=== PATIENT | female | born 1965 | race Caucasian/White ===

== ENCOUNTER 2023-06-22 16:00 | Emergency (ER) | payer OTHER, SELFPAY ==
--- NOTE | 2023-06-22 16:02 | ED.URI ---
HPI - URI/Sore Throat General Chief Complaint: Upper Respiratory Infection Stated Complaint: Chest Congestion Time Seen by Provider: 06/22/23 16:13 Source: patient and RN notes reviewed Mode of arrival: ambulatory Limitations: no limitations History of Present Illness HPI Narrative: 57-year-old female presents with concern for persistent cough for about 4 weeks. She reports persistent cough body aches. She reports some nasal congestion. She denies fever chills, sweats. Reports coughing fits. MD elicited complaint: cough Related Data Home Medications Medication Instructions Recorded Confirmed calcium carbonate 600 mg-vitamin 1 tablet PO DAILY 06/22/23 06/22/23 D3 20 mcg (800 unit) tablet (Caltrate with Vitamin D3) levothyroxine 100 mcg tablet 100 mcg PO DAILY 06/22/23 06/22/23 (Synthroid) venlafaxine 75 mg tablet 75 mg PO DAILY 06/22/23 06/22/23 Allergies Allergy/AdvReac Type Severity Reaction Status Date / Time Sulfa (Sulfonamide Allergy Mild Rash Verified 06/22/23 16:09 Antibiotics) Review of Systems Review of Systems: CONSTITUTIONAL: Denies malaise, chills, sweats, or fever. EYES: Denies visual changes, redness, or discharge. ENT: Reports rhinorrhea, congestion. Denies sinus pain, otalgia and sore throat. CARDIOVASCULAR: Denies chest pain, palpitations, or edema. RESPIRATORY: Reports persistent cough. Denies dyspnea. GASTROINTESTINAL: Denies abdominal pain, nausea, vomiting, diarrhea SKIN: Denies rash or itching. MUSCULOSKELETAL: Denies myalgia. NEUROLOGIC: Denies headache. All systems reviewed & are unremarkable except as noted in HPI and below PMFSH Comments At time of signature, agree with nursing past medical, surgical, social and family history. There is no relevant family history pertinent to the presenting complaint Exam Narrative: GENERAL: Well-appearing, well-nourished, and in no acute distress. HEAD: Normocephalic EYES: PERRLA, conjunctivae clear ENT: Nares clear. Mucous membranes moist. TM pearly valdes with dull light reflex bilaterally; no tragal tenderness. Oropharynx not erythematous without lesions. Tonsils not enlarged and without exudate, no drooling, no hoarseness, no trismus, uvula midline. NECK: Supple. No lymphadenopathy CHEST: Clear to auscultation, breath sounds equal. No wheezing, rhonchi, rales, or stridor. No respiratory distress, speaks in full sentences. Cough noted HEART: Regular rate and rhythm. No murmur heard. SKIN: Warm, dry, no rash. NEURO: Alert and oriented x3. PSYCH: Normal mood and affect Course Course Emergency Course: Patient is aware of diagnosis, understands and agrees to treatment plan. Anticipatory guidance given. Patient agrees to follow-up as directed and is aware of reasons to seek care at the emergency department. Portions of this record may have been created with voice recognition software Level of Care: Express Care Visit Vital Signs Vital signs: Reviewed. MDM - URI/Sore Throat MDM Narrative Medical decision making narrative: Differential diagnosis considered: [place] virus, strep pharyngitis, allergic rhinitis, upper respiratory tract infection, sinusitis, rhinosinusitis, nasopharyngitis. viral pharyngitis, otitis media, otitis externa, pneumonia, bronchitis, viral cough syndrome, viral syndrome, and influenza. Exam findings show no acute concerns or changes; patient is non-toxic appearing and is in no distress. Patient is appropriate for outpatient treatment and follow-up. Lab Data Attestation: I reviewed the patient's lab results. Critical Care Time Critical Care Time Critical Care Time: No Discharge Plan Discharge Clinical Impression: Bronchitis Patient Disposition: Home, Self-Care Condition: Stable Instructions: Antibiotic Form, Acute Bronchitis (ED) Additional Instructions: Take medications as prescribed Recommend antihistamine such as Benadryl at night time and Zyrtec or Rola during the day Use
[2023-06-22 16:12] VITALS: BP 136/83; PULSE 106; RESP 16; TEMP 36.1; O2SAT 98
== END 2023-06-22 16:24 | disposition home or self-care (01) ==
PROVIDERS: Emergency Provider Nurse Practitioner; PCP Internal Medicine Geriatric Medicine
DX: J40 Bronchitis, not specified as acute or chronic (principal)
CPT/HCPCS: 99203; G0463

== ENCOUNTER 2023-08-29 08:01 | Emergency (ER) | payer OTHER, SELFPAY ==
--- NOTE | 2023-08-29 08:13 | ED.URI ---
HPI - URI/Sore Throat General Chief Complaint: Upper Respiratory Infection Stated Complaint: COUGH/CONGESTION Source: patient, RN notes reviewed and old records reviewed Mode of arrival: ambulatory Limitations: no limitations History of Present Illness HPI Narrative: 58 year old female who presents to [facility] care with complaints of cough, sinus congestion and drainage, For 3 weeks duration. Patient reports she has been taking Mucinex has been taking coughing cold [id number]. Patient states her cough is worse at night has noticed some wheezing. patient denies any fevers denies any body aches denies any chills or sweats. patient reports her cough is productive at times with a clear expectoration.Patient reports she was treated in May for similar symptoms with prednisone, antibiotic, inhaler which did resolve her symptoms. 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 MD elicited complaint: cough, rhinorrhea and nasal congestion Onset (ago): week(s) (3) Description of mucous: clear Able to tolerate fluids by mouth: Yes Exacerbating factors: supine positioning Treatments prior to arrival: other ( Mucinex, Cough and cold OTC) Related Data Home Medications Medication Instructions Recorded Confirmed calcium carbonate 600 mg-vitamin 1 tablet PO DAILY 06/22/23 08/29/23 D3 20 mcg (800 unit) tablet (Caltrate with Vitamin D3) levothyroxine 100 mcg tablet 100 mcg PO DAILY 06/22/23 08/29/23 (Synthroid) venlafaxine 75 mg tablet 75 mg PO DAILY 06/22/23 08/29/23 Allergies Allergy/AdvReac Type Severity Reaction Status Date / Time Sulfa (Sulfonamide Allergy Mild Rash Verified 08/29/23 08:16 Antibiotics) Review of Systems Review of Systems: CONSTITUTIONAL: Denies malaise, chills, sweats, or fever. EYES: Denies visual changes, redness, or discharge. ENT: Reports rhinorrhea, congestion, sinus pain,no otalgia and no sore throat. CARDIOVASCULAR: Denies chest pain, palpitations, or edema. RESPIRATORY: Reports cough.? Denies dyspnea. GASTROINTESTINAL: Denies abdominal pain, nausea, vomiting, diarrhea SKIN: Denies rash or itching. MUSCULOSKELETAL: Denies myalgia. NEUROLOGIC: Denies headache. All systems reviewed & are unremarkable except as noted in HPI and below PMFSH Past Medical History Medical History (Updated 08/29/23 @ 09:46 by Chanda Liriano NP) Breast cancer right Hypothyroid Surgical History Surgical History (Updated 08/29/23 @ 09:48 by Chanda Liriano NP) H/O bilateral mastectomy H/O breast reconstruction History of removal of both ovaries History of removal of Port-a-Cath had port a cath for chemotherapy History of repair of anterior cruciate ligament of left knee Social History Social History (Updated 08/29/23 @ 09:46 by Chanda Liriano NP) Smoking status: Never smoker Alcohol intake: current Alcohol use details: rare Substance use type: does not use Living arrangements: with family 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 There is no relevant family history pertinent to the presenting complaint Exam Narrative: GENERAL: Well-appearing, well-nourished, and in no acute distress. HEAD: Normocephalic EYES: PERRLA, conjunctivae clear ENT: Nares clear, turbinates edematous and erythematous, clear discharge. Mucous membranes moist. TM pearly valdes with dull light reflex bilaterally; no tragal tenderness. Oropharynx erythematous without lesions. Tonsils not enlarged and without exudate, no drooling, no hoarseness, no trismus, uvula midline.post nasal drainage NECK: Supple. No lymphadenopathy CHEST:Scattered wheezing noted, breath sounds equal.Positive wheezing, no rhonchi, rales, or stridor. No respiratory distress, speaks in full sentences.cough at times productiv
[2023-08-29 08:14] VITALS: BP 147/89; PULSE 88; RESP 16; TEMP 36.8; O2SAT 100
== END 2023-08-29 08:38 | disposition home or self-care (01) ==
PROVIDERS: Emergency Provider Registered Nurse; PCP Internal Medicine Geriatric Medicine
DX: J40 Bronchitis, not specified as acute or chronic (principal); E03.9 Hypothyroidism, unspecified; Z85.3 Personal history of malignant neoplasm of breast; Z90.13 Acquired absence of bilateral breasts and nipples
CPT/HCPCS: 99213; G0463

== ENCOUNTER 2024-12-19 08:09 | Emergency (ER) | payer OTHER, SELFPAY ==
[2024-12-19 08:21] VITALS: BP 129/66; PULSE 90; RESP 16; TEMP 36.3; O2SAT 98
--- NOTE | 2024-12-19 08:32 | ED_ITS ---
HPI - URI/Sore Throat General Chief Complaint: Upper Respiratory Infection Stated Complaint: CHEST CONGESTION Time Seen by Provider: 12/19/24 08:32 Source: patient Mode of arrival: ambulatory Limitations: no limitations History of Present Illness HPI Narrative: 59-year-old female presents with complaint ?cold symptoms? for the past 2-3 weeks. States ?thought it was just a common cold ?. Has been coughing for ab out 5 days. Thinks that infection went down into chest. 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 No chest pain or shortness of breath. All systems reviewed and negative except as noted above. Related Data Home Medications ?Medication ?Instructions ?Recorded ?Confirmed ?Last Taken ?Type calcium 600 mg (as 1 tablet PO DAILY 06/22/23 12/19/24 Unknown History carbonate)-vitamin D3 20 mcg (800 unit) tablet (Caltrate with Vitamin D3) levothyroxine 100 mcg tablet 100 mcg PO DAILY 06/22/23 12/19/24 Unknown History (Synthroid) venlafaxine 75 mg tablet 75 mg PO DAILY 06/22/23 12/19/24 Unknown History semaglutide 0.25 mg or 0.5 mg (2 2 mg subcut WEEKLY 12/19/24 12/19/24 Unknown History mg/3 mL) subcutaneous pen injector (Ozempic) Allergies Allergy/AdvReac Type Severity Reaction Status Date / Time Sulfa (Sulfonamide Allergy Mild Rash Verified 12/19/24 08:18 Antibiotics) Review of Systems Review of Systems: CONSTITUTIONAL: Denies fever, chills, or sweats. EYES: Denies visual changes, redness, or discharge. ENT: Reports rhinorrhea, congestion. Denies sore throat, or otalgia. CARDIOVASCULAR: Denies chest pain, palpitations, or edema. RESPIRATORY: Reports cough. Denies dyspnea. GASTROINTESTINAL: Denies abdominal pain, nausea, vomiting, or diarrhea. GENITOURINARY: Denies dysuria or hematuria. SKIN: Denies rash or itching. MUSCULOSKELETAL: Denies back pain, joint pain, or myalgia. NEUROLOGIC: Denies headache, numbness, or weakness. PSYCHIATRIC: Denies anxiety or depression. All other systems reviewed are negative, except as documented in HPI. [facility] Past Medical History Medical History (Updated 12/19/24 @ 08:37 by Helen Aguirre NP) Hypothyroid Breast cancer right Surgical History Surgical History (Updated 08/29/23 @ 09:48 by Chanda Liriano NP) History of removal of Port-a-Cath had port a cath for chemotherapy History of removal of both ovaries History of repair of anterior cruciate ligament of left knee H/O breast reconstruction H/O bilateral mastectomy Social History Social History (Updated 08/29/23 @ 09:46 by Chanda Liriano NP) Smoking status: Never smoker Alcohol intake: current Alcohol use details: rare Substance use type: does not use Living arrangements: with family 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 There is no relevant family history pertinent to the presenting complaint. Exam Narrative: GENERAL: This is a well-nourished, well-developed patient, in no apparent distress. HEAD: normocephalic, atraumatic. EYES: PERRL. Sclera clear/white. Vision is grossly intact. EARS: External ears normal, auditory canals clear and without drainage, TMs normal without perforation. Hearing grossly intact. NOSE: External nose normal with congestion, clear nasal drainage THROAT: Mucous membranes moist, posterior pharynx clear. NECK: Neck supple, non-tender without lymphadenopathy, masses or thyromegaly. CARDIOVASCULAR: Regular rate and rhythm without murmurs, gallops, or rubs. RESPIRATORY: Clear to auscultation. Breath sounds equal bilaterally. No wheezes, rales, or rhonchi. SKIN: warm, Dry, intact with no suspicious lesions or rash, good texture and turgor. NEURO: awake, alert, and oriented to person, place and time. There were no obvious focal neurologic abnormalities. EXTREMITIES: No joint tenderness, effusion, or edema noted. Course Course Level of Care: Express Care Visit Vital Signs Vital signs: Vital Signs Temperature 36.3 C L 12/19/24 08:21 Pulse Rate 90 12/19/24 08:21 Respiratory Rate 16 12/19/24 08:21 Blood Pressure 129/66 12/19/24 08:21 Pulse Oximetry 98 12/19/24 08:21 Oxygen Delivery Room Air 12/19/24 08:21 Temperature 36.3 C L 12/19/24 08:21 Pulse Rate 90 12/19/24 08:21 Respiratory Rate 16 12/19/24 08:21 Blood Pressure 129/66 12/19/24 08:21 Pulse Oximetry 98 12/19/24 08:21 Oxygen Delivery Room Air 12/19/24 08:21 Reviewed MDM - URI/Sore Throat MDM Narrative Medical decision making narrative: Will prescribe antibiotic due to duration of symptoms and exam findings. Pa tient is alert, nontoxic. Lungs clear to auscultation. Patient agrees with plan of care. Please be advised this is a medical document. It is intended for [id number] communication. It is written in medical language and may contain unfamiliar abbreviations or verbiage. Medical documents are intended to carry relevant information, facts as evident, and the clinical opinion of the practitioner at the time of the encounter. This report may have been done utilizing a voice recognition system. Attempts have been made to correct errors. However, there may be uncorrected grammatical, spelling, and recognition errors present. The file time of this note does not necessarily represent the time of service. Discharge Plan Discharge Clinical Impression: Acute bronchitis Qualifiers: Bronchitis organism: unspecified organism Qualified Code(s): J20.9 - Acute bronchitis, unspecified Patient Disposition: Home, Self-Care Condition: Stable Instructions: Antibiotic Form, Acute Bronchitis (ED) Additional Instructions: Take medications as prescribed. Take ibuprofen or Tylenol every 6-8 hours as needed for pain and fever. Drink at least 64 [address] a day. [address] cool mist humidifier in bedroom where you sleep. Follow-up with your primary care physician if symptoms are not improving. Patient Language: Citizen Of [place] Prescriptions: New benzonatate 200 mg capsule 200 mg PO TID PRN (Reason: cough) Qty: 20 0RF methylprednisolone [Medrol ([place])] 4 mg tablets,dose pack See Rx Instructions PO .COMPLEX Qty: 21 0RF Rx Instructions: orally per package directions albuterol sulfate 90 mcg/actuation HFA aerosol inhaler 2 puff inhalation Q4-6H PRN (Reason: shortness of breath or wheezing) Qty: 8.5 0RF amoxicillin-pot clavulanate 875-125 mg tablet 1 tablet PO Q12H 7 Days Qty: 14 0RF (DME) Aerochamber Plus Z Stat Spacer See Rx Instructions .Route Qty: 1 0RF Rx Instructions: As directed amoxicillin-pot clavulanate 875-125 mg tablet 1 tablet PO Q12H 7 Days Qty: 14 0RF No Action venlafaxine 75 mg tablet 75 mg PO DAILY levothyroxine [Synthroid] 100 mcg tablet 100 mcg PO DAILY calcium carbonate-vitamin D3 [Caltrate with Vitamin D3] 600 mg-20 mcg (800 unit) Tablet 1 tablet PO DAILY albuterol sulfate 90 mcg/actuation HFA aerosol inhaler 2 puff INHALATION QID PRN (Reason: shortness of breath or wheezing) Qty: 8.5 0RF Ozempic 0.25 mg or 0.5 mg (2 mg/3 mL) pen injector 2 mg SUBCUT WEEKLY Follow-up/Referrals: Dilcia,MD Macrina [Primary Care Provider] - Time of Disposition: 08:39
== END 2024-12-19 08:42 | disposition home or self-care (01) ==
PROVIDERS: Emergency Provider Nurse Practitioner Family; PCP Internal Medicine Geriatric Medicine
DX: J20.9 Acute bronchitis, unspecified (principal); E03.9 Hypothyroidism, unspecified; Z85.3 Personal history of malignant neoplasm of breast; Z90.13 Acquired absence of bilateral breasts and nipples; Z90.722 Acquired absence of ovaries, bilateral
CPT/HCPCS: 99213; G0463

== ENCOUNTER 2025-06-27 23:43 | Emergency (ER) | payer OTHER, SELFPAY ==
--- NOTE | ~2025-06-27 | XR_ITS ---
Examination: XR chest 2V Clinical History: chest pain Comparison: None Technique: PA and Lateral Findings: Cardiomediastinal silhouette normal size and configuration. Lungs clear. No acute bony abnormality. IMPRESSION: 1. No acute cardiopulmonary findings. Reviewed, dictated and finalized at location R.
--- NOTE | ~2025-06-27 | CT_ITS ---
EXAMINATION: CTA chest PE protocol DATE: 06/28/2025 07:02 INDICATION: Chest pain. TECHNIQUE: Computed tomography angiography (CTA) of the chest was performed with 100 mL Omnipaque-350 intravenous contrast timed to evaluate the pulmonary arteries. Coronal maximum intensity projection 3D-reconstructions were created by the technologist. Automated exposure control and iterative reconstruction technique were employed. The dose-length product was 621.22 mGy-cm. COMPARISON: None. FINDINGS: The lungs demonstrate mild atelectasis. No pleural effusion. The heart size is normal. No pericardial effusion. There is no pulmonary embolus. Breast implants are noted. Gallbladder wall thickening is noted. There is cortical thinning of right kidney. There is no pulmonary embolus. Aorta is normal in caliber. There is severe cervical and thoracic spondylosis. IMPRESSION: 1. No pulmonary embolus. 2. Gallbladder wall thickening suspicious for acute or chronic cholecystitis. Reviewed, dictated and finalized at location E.
[2025-06-27 23:57] VITALS: BP 151/85; PULSE 71; RESP 18; TEMP 36.4; O2SAT 100
[2025-06-28 00:05] LABS: Hematocrit 50.3 % (37.0-47.0); Hemoglobin 16.3 g/dL (12.0-15.0); Immature Granulocyte Percent A 0.1 % (0-0.5); Lymphocytes Absolute Auto 2.15 K/mm3 (0.9-3.2); Mean Corpuscular HGB Conc 32.4 g/dl (32-36); Mean Corpuscular Hemoglobin 27.1 pg (26-34); Mean Corpuscular Volume 83.6 fl (80-100); Nucleated Red Blood Cells Absolute Auto 0.000 K/mm3 (0.0-0.012); Nucleated Red Blood Cells Perc 0.0 % (0.0-0.2); Platelet Count Result 222 k/mm3 (150-375); Red Blood Count 6.02 M/mm3 (4.2-5.4); White Blood Count 8.4 K/mm3 (4.5-10.0)
[2025-06-28 00:32] LABS: INR 1.0; Partial Thromboplastin Time 28.5 Seconds (22.3-36.8); Prothrombin Time 12.8 Seconds (11.1-14.7)
[2025-06-28 00:45] LABS: Alanine Aminotransferase 19 U/L (6-35); Albumin Level 4.3 g/dL (3.5-5.1); Alkaline Phosphatase 81 U/L (38-126); Anion Gap 8 mmol/L (4-12); Aspartate Amino Transferase 25 U/L (14-36); Bilirubin,Total 0.5 mg/dL (0.2-1.3); Blood Urea Nitrogen 15 mg/dL (7-17); Calcium 9.5 mg/dL (8.4-10.2); Carbon Dioxide 29 mmol/L (22-30); Chloride 100 mmol/L (98-107); Estimated CRCL calculation 85 ml/min; Estimated Glomerular Filt Rate > 60; Glucose 138 mg/dL (65-110); Lipase 82 U/L (23-300); Potassium 3.6 mmol/L (3.4-5.0); Sodium 137 mmol/L (137-145); Total Protein 7.9 g/dL (6.3-8.2)
[2025-06-28 00:57] LABS: Troponin I < 0.012 ng/mL (0.000-0.034)
--- NOTE | 2025-06-28 03:01 | ECG_ITS ---
Test Date: 2025-06-28 04:06:00 Measurements Intervals [place] Rate: 66 P: 13 MI: 181 QRS: -19 QRSD: 80 T: 10 QT: 384 QTc: 404 Interpretive Statements SINUS RHYTHM POSSIBLE ANTERIOR MYOCARDIAL INFARCTION , PROBABLY OLD BORDERLINE T WAVE ABNORMALITY- INFERIOR LEADS BASELINE ARTIFACT- I, II, AVR, V1 ABNORMAL ECG Compared to ECG 06/27/2025 23:49:21 NO SIGNIFICANT CHANGE Electronically Signed On 06-28-2025 08:21:14 CDT by Errol Barahona D.O.
--- NOTE | 2025-06-28 04:00 | ECG_ITS ---
Test Date: 2025-06-28 07:19:40 Measurements Intervals [place] Rate: 70 P: 12 MS: 179 QRS: -18 QRSD: 83 T: 3 QT: 409 QTc: 443 Interpretive Statements SINUS RHYTHM LOW QRS VOLTAGE IN PRECORDIAL LEADS VOLTAGE CRITERIA FOR LVH POSSIBLE ANTERIOR MYOCARDIAL INFARCTION , PROBABLY OLD BORDERLINE T WAVE ABNORMALITY- INFERIOR LEADS BASELINE ARTIFACT- I, II, AVR, V1 ABNORMAL ECG Compared to ECG 06/28/2025 04:06:00 NO SIGNIFICANT CHANGE Electronically Signed On 06-28-2025 08:26:08 CDT by Errol Barahona D.O.
--- OUTSIDE RECORDS SUMMARY | 2025-06-28 04:20 | XMS_ITS | Encounter Summary ---
Author Organization [facility] Healthcare Address [address] [place] [address] Care Team Providers Care [employer] Name Role Phone Macrina Ha MD Primary Care Provider [phone] Christofer Mcgregor MD Unavailable [phone] Usman Richardson MD Unavailable + Waqas Loving MD Unavailable Brittany Rico MD Unavailable [phone] Bruce Bermudez OD Unavailable [phone] Bruce Phillips DO Unavailable [phone] Encounter Details Date Type Department Care Team (Late st Contact Info) Description 06/15/2025 Results Follow-Up [facility] [address] [place] [address] Jayla Blood NP [address] [place] [address] Cholesterol, LDL, direct, Comprehensive metabolic panel, Albumin Creatinine Ratio, Urine, Additional followed-up results: 4 Social History Tobacco Use Types Packs/Day Years Used Date Smoking Tobacco: Never Smokeless Tobacco: Never Alcohol Use Standard Drinks/Week Comments Yes 0 (1 standard drink = 0.6 oz pur e alcohol) socially PHQ-2 Answer Date Recorded PHQ-2 Total Score (If total score is 3 or more points, staff should administer the PHQ-9) 0 06/01/2025 AUDIT-C Answer Date Recorded Q1: How often do you have a drink containing alc ohol? Monthly or less 06/01/2025 Q2: How many drinks containi ng alcohol do you have on a typical day when you are drinking? 1 or 2 06/01/2025 Q3: How often do you have si x or more drinks on one occasion? 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 Not on file Not on file documented as of this encounter Plan of Treatment Not on file documented as of this encounter Visit Diagnoses Not on filedocumented in this encounter Care Teams [employer] Relationship Specialty Start Date End Date Macrina Ha MD PCP - General 12/22/16 Christofer Mcgregor MD [address] [facility] [id number] [place] [address] Consulting Physician Gynecologic Oncology 12/16/17 Usman Richardson MD [address] GASTRO[facility]Y [place] [id number] Consulting Physician Gastroenterology 12/16/17 Waqas Loving MD [address] [place] [address] Surgeon Plastic Surgery 12/16/17 Brittany Rico MD [address] [place] [address] Surgeon Surgical Oncology 12/16/17 Bruce Bermudez OD [address] [place] [address] Optometry 12/18/17 Bruce Phillips DO [address] [place] [id number] Medical Oncologist/Hematolog ist Hematology and Oncology 04/14/22 documented as of this encounter
--- OUTSIDE RECORDS SUMMARY | 2025-06-28 04:20 | XMS_ITS | Clinical Summary ---
Author Organization [facility] Address [address] [place] [address] Care Team Providers Care Elevator Operator Name Role Phone Macrina Ha MD Primary Care Provider [phone] Christofer Mcgregor MD Unavailable Usman Richardson MD Unavailable + Gaby Loving MD Unavailable [phone] Brittany Rico MD Unavailable [phone] Bruce Bermudez OD Unavailable [phone] Bruce Phillips DO Unavailable [phone] Allergies Active Allergy Reactions Criticality Noted Date Comments Animal Dander Unknown Chocolate Rash Medium Cinnamon Unknown House Dust Sulfa (Sulfonamide Antibiotics) Rash,Itching Medium Reaction: Rash, Itching, Sulfasalazine Unknown,Rash Medium 09/13/2016 Medications blood-glucose meter misc Use daily or as directed for monitoring of diabetes. 1 each 04/26/20 22 Active blood glucose diagnostic (glucose blood) stripIndications:t ype 2 diabetes mellitus Check blood sugar daily 100 each 11 04/26/20 22 Active lancets miscIndications:ty pe 2 diabetes mellitus 1 each by other route as directed Check blood sugars daily 100 each 06/06/20 22 Active triamcinolone (KENALOG) 0.1 % ointmentIndication s:Dry skin dermatitis Apply topically 2 (two) times a day as needed for rash (Breast area rash) 80 g 1 11/13/19 25 Active vitamin B complex capsule Take 1 capsule by mouth daily Active semaglutide (OZEMPIC) 2 mg/dose (8 mg/3 mL) pen injector injectionIndicatio ns:Class 2 severe obesity with serious comorbidity and body mass index (BMI) of 36.0 to 36.9 in adult, unspecified obesity type,Type 2 diabetes mellitus with hyperlipidemia (HCC) Inject 2 mg under the skin every 7 days 9 mL 2 06/01/20 25 Active levothyroxine (SYNTHROID) 100 mcg tabletIndications: Hypothyroidism, adult Take 1 tablet (100 mcg total) by mouth daily 90 tablet 3 06/01/20 25 Active venlafaxine (EFFEXOR) 75 mg tabletIndications: Surgical menopause Take 1 tablet (75 mg total) by mouth nightly 90 tablet 3 06/01/20 25 Active calcium carbonate/vitamin D3 (CALTRATE 600 PLUS D ORAL) Take by mouth 025 Discontin ued(Thera py completed ) venlafaxine (EFFEXOR) 75 mg tabletIndications: Surgical menopause Take 1 tablet (75 mg total) by mouth nightly 90 tablet 3 05/27/20 24 025 Discontin ued(Reord er) levothyroxine (SYNTHROID) 100 mcg tabletIndications: Hypothyroidism, adult TAKE 1 TABLET DAILY 90 tablet 3 11/10/19 25 025 Discontin ued(Reord er) semaglutide (OZEMPIC) 2 mg/dose (8 mg/3 mL) pen injector injectionIndicatio ns:Type 2 diabetes mellitus with hyperlipidemia (HCC),Class 2 obesity due to excess calories without serious comorbidity with body mass index (BMI) of 37.0 to 37.9 in adult Inject 2 mg under the skin every 7 days 9 mL 03/30/20 25 025 Discontin ued(Reord er) Active Problems Problem Noted Date Diagnosed Date Chronic cough 07/07/2024 Overview (07/07/2024): History of BRCA breast cancer Chest x-ray test -9 424 evaluation chronic cough THIS IS AN ELECTRONICALLY VERIFIED FINAL REPORT 05/28/2024 11:56 AM - Electronically signed by Yinka Mcdonough M.D. TH: TH Report ID: [id number] Reading Location: [id number] PFTs June 13, 2024 for chronic cough (-) normal diffusion capacity, normal spirometry, normal flow volume loop Multiple-type hyperlipidemia 06/03/2024 History of bilateral salpingo-oophorectomy (BSO) 11/09/2023 Type 2 diabetes mellitus with hyperlipidemia Overview (04/14/2022): Hemoglobin A1c 6 0.25 March 2022. Refer to diabetic counseling with follow-up 3 months diabetic labs before visit Assessment & Plan (10/13/2024 8:58 PM ROCKET MOTOR TESTER): Chronic, controlled. Last A1c from July down to 6.3. down another 9 lbson ozempic, BMI at 37.2. no acute symptoms or findings on exam. Will increase ozempic to 2mg dose. Continue heart healthy diet/exercise. Keep repeat diabetic labs before follow in May. Assessment & Plan (08/08/2024 4:01 PM ROCKET MOTOR TESTER): Chronic, controlled. Last A1c from last week down to 6.3. down 8 lbs after starting ozempic, BMI at 38.7. no acute symptoms or findings on exam. Will increase ozempic to 1mg dose. Follow in 2 months. BRCA1-associated protein-1 tumor predisposition syndrome 09/15/2019 Overview (03/20/2021): 1. Status post sentinel lymph node biopsy 12/20/2009 with 4 sentinel lymph nodes all negative. 2. Weekly paclitaxel initiated 12/24/2009, status post 4 cycles. 3. Dose-dense AC initiated 04/01/2010, status post 4 cycles. 4. Bilateral mastectomy 06/13/2010. 5. Bilateral salpingo-oophorectomy 01/03/2011. Class 2 obesity due to exces s calories without serious comorbidity with body mass index (BMI) of 37.0 to 37.9 in adult 02/07/2014 Overview (12/28/2016): Obesity (BMI 30-39.9) Assessment & Plan (10/13/2024 9:05 PM ROCKET MOTOR TESTER): Chronic, improving with Ozempic. Down 17 lb total, BMI at 37.2. No acute findings on exam, vitals stable. We will increase Ozempic to 2 mg dose. eat plenty of protein especially dairy protein before bed and work on strength training so that we build muscle mass and do not allow the body to use muscle for its calorie needs. High protein foods include: protein drinks, japanese yogurt, cottage cheese, eggs, chicken, white fish, tuna, tofu, nut butter/nuts, beans (mostly kidney and black beans), peas, edamame, and spinach. Hypothyroidism, adult 02/07/2014 Overview (12/28/2016): Hypothyroidism, adult Assessment & Plan (08/08/2024 4:03 PM ROCKET MOTOR TESTER): TSH/free T4 drawn last week are normal, continue levothyroxine as rxd. No acute symptoms or findings on exam. Assessment & Plan (10/22/2023 7:53 PM ROCKET MOTOR TESTER): T4 drawn yesterday is normal, continue levothyroxine as rxd. No acute symptoms or findings on exam. History of breast cancer 02/07/2014 Overview (12/16/2017): Triple negative Breast cancer, BRCA positive, Bilateral mastectomy 2009, reconstructive breast surgery by GABY Haywood Menopause syndrome 03/19/2013 Overview (12/29/2016): Surgical menopause Assessment & Plan (10/22/2023 7:54 PM ROCKET MOTOR TESTER): Mostly controlled on venlafaxine. No new symptoms, no acute findings on exam. Labs from yesterday are unremarkable. Refilled venlafaxine in office today. Presence of bilateral breast implant 03/28/2011 Resolved Problems Problem Noted Date Diagnosed Date Resolved Date Pre-hypertension 12/18/2017 01/05/2019 Class 2 severe obesity due t o excess calories with serious comorbidity and body mass index (BMI) of 38.0 to 38.9 in adult 12/18/2017 Assessment & Plan (08/08/2024 4:03 PM ROCKET MOTOR TESTER): Chronic, improving. Admits inability to lose weight despite more exercise and attempting to lower carbs. Down 8 Lbs since starting ozempic last month, BMI at 38.7. will increase to 1 mg dose. Continue heart healthy diet/exercise. Assessment & Plan (10/22/2023 7:56 PM ROCKET MOTOR TESTER): Current BMI at 41.1, despite more exercise and attempting to lower carbs. wishes to see if insurance will cover mounjaro/zepbound. Will send 2.5mg dose, if covered she will need to make follow in 1month to assess progress and attempt increasing dosage. Continue diet/exercise. Prediabetes 12/18/2017 06/03/2024 Assessment & Plan (10/22/2023 8:00 PM ROCKET MOTOR TESTER): Recent A1c yesterday was 6.3. no new symptoms or acute findings on exam. Up 6 lbs despite attempts at diet/exercise. Discussed mounjaro/zepbound in detail, will rx 2.5mg dose, if insurance covers she will need to follow in 1 month to adjust dose. Continue heart healthy diet/exercise. Repeat diabetic labs before annual in March. 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 02/07/2014 12/16/2017 Overview (12/28/2016): Scabies Benign hypertension 07/31/2011 01/06/20 19 Mass of breast 03/09/2010 01/05/2019 Encounters Date Type Department Care Team Description 06/15/2025 Results Follow-Up [facility] [address] [place] [address] Jayla Blood NP Cholesterol, LDL, direct, Comprehensive metabolic panel, Albumin Creatinine Ratio, Urine, Additional followed-up results: 4 06/01/2025 3:15 PM CDT Office Visit [facility] [address] [place] [address] Macrina Ha MD Annual physical exam (Primary Dx); Advanced directives, counseling/discussion; Class 2 severe obesity with serious comorbidity and body mass index (BMI) of 36.0 to 36.9 in adult, unspecified obesity type (HCC); Type 2 diabetes mellitus with hyperlipidemia (HCC); Hypothyroidism, adult; BRCA1-associated protein-1 tumor predisposition syndrome; History of breast cancer; Surgical menopause; Immunization counseling; Menopause 05/01/2025 8:30 AM CDT Office Visit [facility] [address] [place] [address] [address] [place] [address] Bruce Phillips, BRCA1-associated protein-1 tumor predisposition syndrome (Primary Dx); History of breast cancer from Last 3 Months Immunizations Immunization Administration Dates Next Due Influenza, Quadrivalent, Spl it, Preservative Free, Intramuscular 07/27/2018 Influenza, Unspecified 10/09/2024(Deferr ed: Patient Refused),07/16/2023(Deferred: Patient Refused),07/25/2019 Moderna SARS-CoV-2 Monovalen t Vaccination (12+ YRS) 10/01/2021,12/04/2020,11/06/2020 Tdap 04/16/2023,03/19/2013,08/29/2011 ZOSTER Recombinant 04/16/2023 Surgical History Surgery Date Site/Laterality Comments COLONOSCOPY 05/15/2017 colonoscopy (-) hyperplastic polyps HM PAP SMEAR WITH HPV 09/08/2016 (-) Pap, (-) HPV BREAST RECONSTRUCTION 03/09/2011 Dr. Gaby Loving BILATERAL SALPINGOOPHORECTOMY 01/03/[address] Mcgregor because of BRCA positive breast cancer MASTECTOMY COMPLETE / SIMPLE 09/24/2009 - 09/23/2010 Bilateral BRCA positive breast cancer BREAST RECONSTRUCTION 10/03/2010 GABY Turner, [place] bilateral breast reconstructions HM DNA STOOL 10/18/2023 (-) due in 3 years Medical History Medical History Date Comments Hypothyroidism Morbidly obese (HCC) Menopause syndrome Breast cancer, BRCA1 positive Morbid obesity with BMI of 40.0-44.9, adult (HCC ) 12/18/2017 Prediabetes 12/18/2017 Family History Medical History Relation Name Comments Cancer Father Diabetes Father Diabetes Mother Melanoma Mother Breast cancer Sister Relation Name Status Comments Father Mother Alive Sister Alive Social History Tobacco Use Types Packs/Day Years Used Date Smoking Tobacco: Never Smokeless Tobacco: Never Tobacco Cessation:Counseling Given: No Alcohol Use Standard Drinks/Week Comments Yes 0 [...] on file Legal Sex Female 12:03 PM ROCKET MOTOR TESTER Gender Identity Not on file Sexual Orientation Not on file 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 file Not on file Not on file Obstetrics History Para Term AB IAB SAB Ectopic Multiple Livin g Live Births 2 1 2 Date Outcome GA Total Labor Labor/2nd/3rd Weight Sex Type Anes PTL Nena A1 A5 Name Clin AB Last Filed Vital Signs Vital Sign Reading Time Taken Comments Blood Pressure 132/84 06/01/2025 3:52 PM CDT Pulse 80 06/01/2025 3:52 PM CDT Temperature 36.4 C (97.5 F) 06/01/2025 3:52 PM CDT Respiratory Rate 16 06/01/2025 3:52 PM CDT Oxygen Saturation 98% 06/01/2025 3:52 PM CDT Inhaled Oxygen Concentration - - Weight 90.8 kg (200 lb 3.2 oz) 06/01/2025 3:52 P M CDT Height 157.5 cm (5' 2) 06/01/2025 3:52 PM CDT Body Mass Index 36.62 06/01/2025 3:52 PM CDT Plan of Treatment Health Maintenance Due Date Last Done Comments Hepatitis B Screening 1984 Pneumococcal vaccine <65 (1 of 2 - PCV) 1985 Zoster Vaccine (2 of 2) 06/11/2023 04/16/2023 Cervical Cancer Screening 11/12/2024 11/12/2023, Covid-19 Vaccine (4 - 2024-2 6 season) 2025 10/01/2021, 12/04/2020, 11/06/2020 Influenza Vaccine (#1) 2025 07/25/2019, 2017 Dilated Eye Exam 08/27/2025 08/27/2024, 04/18/2023 Foot Exam 10/09/2025 10/09/2024 Hemoglobin A1C 12/11/2025 06/13/2025, 07/25, 05/29/2024, Additional history exists Depression Screening 06/01/2026 06/01/2025, 05/27/2024, 04/16/2023, Additional history exists Regular Well Visit/Exam 18-64 06/01/2026, 05/27/2024, 04/16/2023, Additional history exists Albumin Creatinine Ratio, Urine 06/13/2026 06/13/2025, 08/05/2024, 05/29/2024, Additional history exists Lipid Panel 06/13/2026 06/13/2025, 09/25, 07/14/2023, Additional history exists eGFR 06/13/2026 06/13/2025, 07/25, 06/05/2024, Additional history exists Colon Cancer Screening-Colonoscopy 06/23/2026 05/14/2017 DTaP/Tdap/Td Vaccine (4 - Td or Tdap) 04/16/2033 04/16/2023, 03/19/2013, 08/29/2011 Colon Cancer Screening-CT Colonography Discontinued 05/14/2017 Colon Cancer Screening-Sigmoidoscopy Discontinued 05/14/2017 Hepatitis C Screening Completed 04/19/2018 Colon Cancer Screening-DNA Stool Discontinued 06/20/20 23, 05/14/2017 Colon Cancer Screening-FIT Discontinued 06/20/2023, Breast Cancer Screening-Mammogram Discontinued Procedures Procedure Name Priority Date/Time Associated Diagnosis Comments T4, FREE Routine 06/13/2025 9:57 AM CDT THYROID FUNCTION CASCADE Routine 06/13/2025 9:57 AM CDT LIPID PANEL Routine 06/13/2025 9:57 AM CDT HEMOGLOBIN A1C Routine 06/13/2025 9:57 AM CDT ALBUMIN CREATININE RATIO, URINE Routine 06/13/2025 9:57 AM CDT Type 2 diabetes mellitus with hyperlipidemia (HCC) Class 2 obesity due to excess calories without serious comorbidity with body mass index (BMI) of 37.0 to 37.9 in adult COMPREHENSIVE METABOLIC PANEL Routine 06/13/2025 9:57 AM CDT Type 2 diabetes mellitus with hyperlipidemia (HCC) Class 2 obesity due to excess calories without serious comorbidity with body mass index (BMI) of 37.0 to 37.9 in adult CHOLESTEROL, LDL, DIRECT Routine 06/13/2025 9:57 AM CDT Type 2 diabetes mellitus with hyperlipidemia (HCC) Class 2 obesity due to excess calories without serious comorbidity with body mass index (BMI) of 37.0 to 37.9 in adult VITAMIN D 25 HYDROXY Routine 04/27/2025 8:12 AM CDT History of breast cancer CA 125 Routine 04/27/2025 8:12 AM CDT History of breast cancer HM DIABETES EYE EXAM Routine 08/27/2024 HIGH RISK HPV DNA DETECTION WITH GENOTYPING Routine 11/12/2023 12:39 PM ROCKET MOTOR TESTER Screening of cancer STOOL DNA COLOGUARD Routine 06/20/2023 6:50 AM CDT Colon cancer screening HEPATITIS C ANTIBODY Routine 04/19/2018 10:43 AM CDT Encounter for hepatitis C screening test for low risk patient COLONOSCOPY REPORT 05/14/2017 from Last 3 Months or Most Recently Relevant to Health Maintenance Results * (ABNORMAL) Thyroid Function [place] (06/13/2025 9:57 AM CDT) TSH 0.13(L) 0.40 - 4.50 mIU/L [facility] 06/13/2025 9:57 AM CDT 06/13/2025 9:59 AM CDT Narrative [facility] - 06/14/2025 6:18 AM CDT FASTING:YES FASTING: YES us Jayla Blood NP LAB BLOOD ORDERABLES Final Resul t Performing Organization Address City/State/[facility] Co de Phone Number [facility] [address] [place] [address] * Albumin Creatinine Ratio, Urine (06/13/2025 9:57 AM CDT) Creatinine, ur 131 20 - 275 mg/dL [facility] Microalbumin, ur 0.5 See Note: mg/dL [facility] Comment: Reference Range: Reference Range Not established Microalbumin/creat ratio 4 <30 mg/g creat [facility] Comment: The ADA defines abnormalities in albumin excretion as follows: Albuminuria Category Result (mg/g creatinine) Normal to Mildly increased <30 Moderately increased 30-299 Severely increased > OR = 300 The ADA recommends that at least two of three specimens collected within a 3-6 month period be abnormal before considering a patient to be within a diagnostic category. Urine 06/13/2025 9:57 AM CDT 06/13/2025 9:59 AM CDT Narrative [facility] - 06/14/2025 6:18 AM CDT FASTING:YES FASTING: YES us Jayla Blood CARBONATION EQUIPMENT OPERATOR LAB URINE ORDERABLES Final Resul t Performing Organization Address [facility] de Phone Number [facility] [address] [place] [address] * T4, free (06/13/2025 9:57 AM CDT) [facility] Free T4 1.3 0.8 - 1.8 ng/dL [facility] 06/13/2025 9:57 AM CDT 06/13/2025 9:59 AM CDT Narrative [facility] - 06/14/2025 6:18 AM CDT FASTING:YES FASTING: YES Jayla Blood NP LAB BLOOD ORDERABLES Final Resul t Performing Organization Address [facility] de Phone Number [facility] [address] [place] [address] * (ABNORMAL) Cholesterol, LDL, direct (06/13/2025 9:57 AM CDT) [facility] LDL, direct 141(H) <100 mg/dL [facility] Comment: Desirable range <100 mg/dL for primary prevention; <70 mg/dL for patients with CHD or diabetic patients with > or = 2 CHD risk factors. Blood 06/13/2025 9:57 AM CDT 06/13/2025 9:59 AM CDT Narrative [facility] - 06/14/2025 6:18 AM CDT FASTING:YES FASTING: YES Jayla Blood NP LAB BLOOD ORDERABLES Final Resul t Performing Organization Address [facility] de Phone Number [facility] [address] [place] [address] * Hemoglobin A1c (06/13/2025 9:57 AM CDT) [facility] Hgb A1C 5.4 <5.7 % of total Hgb [facility] Comment: For the purpose of screening for the presence of diabetes: <5.7% Consistent with the absence of diabetes 5.7-6.4% Consistent with increased risk for diabetes (prediabetes) > or =6.5% Consistent with diabetes This assay result is consistent with a decreased risk of diabetes. Currently, no consensus exists regarding use of hemoglobin A1c for diagnosis of diabetes in children. According to [place] Diabetes Association (ADA) guidelines, hemoglobin A1c <7.0% represents optimal control in non- diabetic patients. Different metrics may apply to specific patient populations. Standards of Medical Care in Diabetes(ADA). 06/13/2025 9:57 AM CDT 06/13/2025 9:59 AM CDT Narrative [facility] - 06/14/2025 6:18 AM CDT FASTING:YES FASTING: YES us Jayla Blood NP LAB BLOOD ORDERABLES Final Resul t [facility] [address] [place] [address] * (ABNORMAL) Lipid panel (06/13/2025 9:57 AM CDT) [facility] Cholesterol 188 <200 mg/dL [facility] HDL 37(L) > OR = 50 mg/dL [facility] Triglycerides 111 <150 mg/dL [facility] LDL 129(H) mg/dL (calc) [facility] Comment: Reference range: <100 Desirable range <100 mg/dL for primary prevention; <70 mg/dL for patients with CHD or diabetic patients with > or = 2 CHD risk factors. LDL-C is now calculated using the Harpreet-Guru calculation, which is a validated novel method providing better accuracy than the Friedewald equation in the estimation of LDL-C. Harpreet STONE et al. DEMI. 2013;310(19): 9754-3115 (http://education.Interactive Project.Panono/faq/CEI782) Chol/HDL ratio 5.1(H) <5.0 (calc) [facility] Non-HDL, (LDL+VLDL) 151(H) <130 mg/dL (calc) [facility] Comment: For patients with diabetes plus 1 major ASCVD risk factor, treating to a non-HDL-C goal of <100 mg/dL (LDL-C of <70 mg/dL) is considered a therapeutic option. 06/13/2025 9:57 AM CDT 06/13/2025 9:59 AM CDT Narrative [facility] - 06/14/2025 6:18 AM CDT FASTING:YES FASTING: YES us Jayla Blood NP LAB BLOOD ORDERABLES Final Resul t [facility] [address] [place] [address] * (ABNORMAL) Comprehensive metabolic panel (06/13/2025 9:57 AM CDT) Glucose 100(H) 65 - 99 mg/dL [facility] Comment: Fasting reference interval For someone without known diabetes, a glucose value between 100 and 125 mg/dL is consistent with prediabetes and should be confirmed with a follow-up test. BUN 10 7 - 25 mg/dL [facility] Creatinine 0.52 0.50 - 1.03 mg/dL [facility] eGFR 108 > OR = 60 mL/min/1.7 3m2 [facility] BUN/creat ratio SEE NOTE: 6 - 22 (calc) [facility] Comment: Not Reported: BUN and Creatinine are within reference range. Sodium 139 135 - 146 mmol/L [facility] Potassium, pl 4.1 3.5 - 5.3 mmol/L [facility] Chloride 107 98 - 110 mmol/L [facility] CO2 27 20 - 32 mmol/L [facility] Calcium 8.7 8.6 - 10.4 mg/dL [facility] Protein, sr 6.5 6.1 - 8.1 g/dL [facility] Albumin 4.0 3.6 - 5.1 g/dL [facility] GLOBULIN 2.5 1.9 - 3.7 g/dL (calc) [facility] Alb/glob ratio 1.6 1.0 - 2.5 (calc) [facility] Bilirubin, total 0.6 0.2 - 1.2 mg/dL [facility] Alk phos 72 37 - 153 U/L [facility] AST 11 10 - 35 U/L [facility] ALT (SGPT) 15 6 - 29 U/L [facility] Blood 06/13/2025 9:57 AM CDT 06/13/2025 9:59 AM CDT Narrative [facility] - 06/14/2025 6:18 AM CDT FASTING:YES FASTING: YES us Jayla Blood CARBONATION EQUIPMENT OPERATOR LAB BLOOD ORDERABLES Final Resul t Performing Organization Address City/[facility]/ZIP Co de Phone Number [facility] [address] [place] [address] * (ABNORMAL) Vitamin D 25 hydroxy (04/27/2025 8:12 AM CDT) Vitamin D 25-OH 28(L) 30 - 100 ng/mL [facility] Comment: Vitamin D Status 25-OH Vitamin D: Deficiency: <20 ng/mL Insufficiency: 20 - 29 ng/mL Optimal: > or = 30 ng/mL For 25-OH Vitamin D testing on patients on D2-supplementation and patients for whom quantitation of D2 and D3 fractions is required, the QuestAssureD(TM) 25-OH VIT D, (D2,D3), LC/MS/MS is recommended: order code [id number] (patients >2yrs). See Note 1 Note 1 For additional information, please refer to http://education.Wheretoget/faq/CCU014 (This link is being provided for informational/ educational purposes only.) Blood 04/27/2025 8:12 AM CDT 04/27/2025 8:12 AM CDT us Bruce Phillips DO LAB BLOOD ORDERABLES Final R esult Performing Organization Address City/[facility]/ZIP Co de Phone Number [facility] [address] [place] [address] * CA 125 (04/27/2025 8:12 AM CDT) CA 125 ag 7 <35 U/mL [facility] Comment: This test was performed using the Siemens Chemiluminescent method. Values obtained from different assay methods cannot be used interchangeably. CA 125 levels, regardless of value, should not be interpreted as absolute evidence of the presence or absence of disease. Blood 04/27/2025 8:12 AM CDT 04/27/2025 8:12 AM CDT Bruce Phillips DO LAB BLOOD ORDERABLES Final R esult [facility] [address] [place] [address] * DIABETES EYE EXAM (08/27/2024) Pathologist [facility] SCRIBED DIABETIC DILATED EYE EXAM Normal Narrative Sirisha Ang RN - 08/27/2024 Eye Exam Report is located beneath Media Tab. Historical Provider HEALTH MAINTENANCE Final Result * High Risk HPV DNA Detection with Genotyping (Molecular component) (11/12/2023 12:39 PM ROCKET MOTOR TESTER) Pathologist [facility] HPV HR 16 Not Detected Not Detected [facility] HPV HR 18 Not Detected Not Detected [facility] HPV HR Non 16/18 Not Detected Not Detected [facility] Comment: Interpretive Data Nucleic acid amplification for detection of high-risk Human Papilloma virus (HPV) is performed by the Josh Rob 6800 HPV test. This assay specifically detects HPV-16 and HPV-18 genotypes. The following HPV genotypes are detected as high-risk HPV: HPV-31, 33, 35, ,39, 45, 51, 52, 56, 58, 59, 66, and 68. This assay has been approved by the [place] Food and Drug Administration for detection of HPV in cervical specimens collected by a physician using an endocervical brush/spatula or cervical broom and placed in the ThinPrep Pap Test PreservCyt collection containers. The performance characteristics of this test have been verified by the [facility] Molecular Infectious Disease laboratory. Correlate with separately reported cytology results, as applicable. Interpretive data last revised 23 Endocervical 11/12/2023 12:3 9 PM ROCKET MOTOR TESTER 11/13/2023 10:10 AM ROCKET MOTOR TESTER Narrative NIGEL RODRIGUEZ - 11/14/2023 1:48 AM ROCKET MOTOR TESTER Clinical history and diagnosis->screening Testing type->Screening Last menstrual period (date if known)->unknown Christi Ortiz NP LAB BODY FLUIDS AND STOOLS JAN VOGT Final Result NIGEL [facility] Department [place] [address] * Stool DNA - Cologuard (06/20/2023 6:50 AM CDT) Stool DNA - Cologuard Negative Negative [employer] (CLIA #:[id number]) Comment: NEGATIVE TEST RESULT. A negative Cologuard result indicates a low likelihood that a colorectal cancer (CRC) or advanced adenoma (adenomatous polyps with more advanced pre-malignant features) is present. The chance that a person with a negative Cologuard test has a colorectal cancer is less than 1 in 1500 (negative predictive value >99.9%) or has an advanced adenoma is less than 5.3% (negative predictive value 94.7%). These data are based on a prospective cross-sectional study of 10,000 individuals at average risk for colorectal cancer who were screened with both Cologuard and colonoscopy. (Gary Brian. et al, N Engl J Med 2014;370(14):4500-1983) The normal value (reference range) for this assay is negative. COLOGUARD RE-SCREENING RECOMMENDATION: Periodic colorectal cancer screening is an important part of preventive healthcare for asymptomatic individuals at average risk for colorectal cancer. Following a negative Cologuard result, the [place] [employer] Society and U.S. Multi-Society Task Force screening guidelines recommend a Cologuard re-screening interval of 3 years. References: [place] [employer] Guideline for Colorectal Cancer Screening: https://www.cancer.org/cancer/fpjsr-vstmak-czycft/mxvghjhcc-mzkosfnpz-rbhsvez/ac s-rec ommendations.html.; Jean Claude DK, Lexi ISAAC, Tutu PetersK, Colorectal Cancer Screening: Recommendations for Physicians and Patients from the U.S. Multi-Society Task Force on Colorectal Cancer Screening , Am J Gastroenterology 2017; 112:5589-5915. TEST DESCRIPTION: Composite algorithmic analysis of stool DNA-biomarkers with hemoglobin immunoassay. Quantitative values of individual biomarkers are not reportable and are not associated with individual biomarker result reference ranges. Cologuard is intended for colorectal cancer screening of adults of either sex, 45 years or older, who are at average-risk for colorectal cancer (CRC). Cologuard has been approved for use by the U.S. FDA. The performance of Cologuard was established in a cross sectional study of average-risk adults aged 50-84. Cologuard performance in patients ages 45 to 49 years was estimated by sub-group analysis of near-age groups. Colonoscopies performed for a positive result may find as the most clinically significant lesion: colorectal cancer [4.0%], advanced adenoma (including sessile serrated polyps greater than or equal to 1cm diameter) [20%] or non- advanced adenoma [31%]; or no colorectal neoplasia [45%]. These estimates are derived from a prospective cross-sectional screening study of 10,000 individuals at average risk for colorectal cancer who were screened with both Cologuard and colonoscopy. (Gary Rice al, N Engl J Med 2014;370(14):1953-0279.) Cologuard may produce a false negative or false positive result (no colorectal cancer or precancerous polyp present at colonoscopy follow up). A negative Cologuard test result does not guarantee the absence of CRC or advanced adenoma (pre-cancer). The current Cologuard screening interval is every 3 years. ([place] [employer] Society and U.S. Multi-Society Task Force). Cologuard performance data in a 10,000 patient pivotal study using colonoscopy as the reference method can be accessed at the following location: www.[employer].Panono/results. Additional description of the Cologuard test process, warnings and precautions can be found at www.[employer].com. Stool 06/20/2023 6:50 AM CDT 06/21/2023 4:17 PM CDT us Macrina Ha MD LAB BODY FLUIDS AND STOOLS ORDERABLES Final Result Performing Organization Address City/[facility]/ZIP Co de Phone Number [facility] (CLIA #:[id number]) [place] [address] * Hepatitis C antibody (04/19/2018 10:43 AM CDT) Hep C Ab NON-REACTI VE NON-REACTI VE [facility] [place] SIGNAL TO CUT-OFF 0.01 <1.00 [facility] [place] Blood specimen (specimen) 04/19/2018 10:43 AM CDT 04/19/2018 10:44 AM CDT Narrative [facility] - 04/20/2018 7:51 PM CDT FASTING:YES FASTING: YES Resulting Agency Comment Performing Organization Information: Site ID: [place] Name: [facility] Address: [address] [place] [id number] Director: Dallas Hill D.O., MPH Macrina Ha MD LAB MICROBIOLOGY - GENERAL ORDERABLES Final Result Performing Organization Address [facility] Co de Phone Number ATUL [facility] - [place], [place] * COLONOSCOPY REPORT (05/14/2017) Anatomical Region Laterality Modality Other Provider Scanning GI PROCEDURE ORDERABLES Final Result from Last 3 Months or Most Recently Relevant to Health Maintenance Insurance [employer] [facility] [facility] [employer] [place] [place] [address] Advance Directives For more information, please contact: [phone] Documents on File Type Date Recorded Patient Radiological Technologist Expl anation ADVANCE DIRECTIVE 05/27/2024 POWER OF A TTORNEY-MEDICAL ADVANCE DIRECTIVE 03/02/2020 POWER OF A TTORNEY-MEDICAL Care Teams Elevator Operator Relationship Specialty Start Date End Date Macrina Ha MD PCP - General 12/22/16 Christofer Mcgregor MD [address] [facility] [id number] [place] [address] Consulting Physician Gynecologic Oncology 12/16/17 Usman Richardson MD [address] [place] [address] Consulting Physician Gastroenterology 12/16/17 Gaby Loving MD [address] [place] [address] Surgeon Plastic Surgery 12/16/17 Brittany Rico MD [address] [place] [address] Surgeon Surgical Oncology 12/16/17 Bruce Bermudez OD [address] [place] [address] Optometry 12/18/17 Bruce Phillips DO [address] [place] [id number] Medical Oncologist/Hematolog ist Hematology and Oncology 04/14/22
--- NOTE | 2025-06-28 04:40 | ED.CHESTPAIN ---
HPI - Chest Pain General Chief Complaint: Chest Pain Stated Complaint: Chest Pain Time Seen by Provider: 06/28/25 04:00 Source: patient Mode of arrival: ambulatory Limitations: no limitations History of Present Illness HPI narrative: Patient presents with midsternal chest pain that started approximately 2 hours prior to arrival. In total the episode lasted 4 hours. She describes it as a pressure , like something sitting on her chest. Patient reports that earlier in the week she had similar feeling like heartburn and she had also been having diarrhea. 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 She is a breast cancer survivor in notes that she seems to have had a chronic cough ever since treatment for this although no official diagnosis of underlying respiratory conditions. She had been having hot flashes. Symptoms were not associated with shortness of breath. She has an occasional cough. Not on anticoagulation. Otherwise this has never happened before. Does not follow regularly with a radio message router. Denies any edema. She was nauseated but no vomiting. She reports being clammy. She took 2 aspirin prior to arrival. Her daughter has POTS. Mother and grandmother had valvular issues. Cardiac risk factors HTN: Currently being monitored due to an elevated DBP, no official diagnosis. Heart healthy diet recommended in interim. HLD: No DM: Yes, not on insulin; type 2, on Ozempic Obese: Yes Smoker: No Personal history [place]/TIA/CVA: No Fam Hx [place] in first degree relative <65yo: Yes, father Related Data Home Medications ?Medication ?Instructions ?Recorded ?Confirmed ?Last Taken ?Type calcium 600 mg (as 1 tablet PO DAILY 06/22/23 12/19/24 Unknown History carbonate)-vitamin D3 20 mcg (800 unit) tablet (Caltrate with Vitamin D3) levothyroxine 100 mcg tablet 100 mcg PO DAILY 06/22/23 12/19/24 Unknown History (Synthroid) venlafaxine 75 mg tablet 75 mg PO DAILY 06/22/23 12/19/24 Unknown History semaglutide 0.25 mg or 0.5 mg (2 2 mg subcut WEEKLY 12/19/24 12/19/24 Unknown History mg/3 mL) subcutaneous pen injector (Ozempic) Allergies Allergy/AdvReac Type Severity Reaction Status Date / Time Sulfa (Sulfonamide Allergy Mild Rash Verified 06/27/25 23:43 Antibiotics) PMFSH Past Medical History Medical History Diabetes mellitus type 2, noninsulin dependent Hypothyroid Breast cancer right Surgical History Surgical History History of removal of Port-a-Cath had port a cath for chemotherapy History of removal of both ovaries History of repair of anterior cruciate ligament of left knee H/O breast reconstruction H/O bilateral mastectomy Family History Family History Father Acute myocardial infarction <65yo Social History Social History Smoking status: Never smoker Alcohol intake: current Alcohol use details: rare Substance use type: does not use Living arrangements: with family 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 HEAD: Normocephalic, atraumatic. EYES: Non injected, non icteric ENT: Nares clear, no rhinorrhea or epistaxis. Gross auditory acuity intact. NECK: Supple. No meningismus. Well-healed scar on right anterior neck CHEST: Speaking in full sentences. No respiratory distress. HEART: Regular rate and rhythm. . ABDOMEN: Soft, nondistended. No rigidity or guarding. Not peritoneal. No tenderness palpation throughout. Prabhakar sign negative. EXTREMITIES: Normal range of motion. No bilateral lower extremity edema. SKIN: Warm, dry, no rash. NEURO: No focal deficits. Alert and oriented. Answering questions. Following commands. Normal speech without aphasia or dysarthria. PSYCH: Normal mood and affect. Course Vital Signs Vital signs: Vital Signs Temperature 97.6 F 06/27/25 23:57 Pulse Rate 71 06/27/25 23:57 Respiratory Rate 18 06/27/25 23:57 Blood Pressure 151/85 H 06/27/25 23:57 Pulse Oximetry 100 06/27/25 23:57 Oxygen Delivery Room Air 06/27/25 23:57 Temperature 98.6 F 06/28/25 10:06 Pulse Rate 64 06/28/25 10:06 Respiratory Rate 16 06/28/25 10:06 Blood Pressure 146/75 H 06/28/25 10:06 Pulse Oximetry 97 06/28/25 10:06 Oxygen Delivery Room Air 06/27/25 23:57 MDM - Chest Pain MDM Narrative Medical decision making narrative: Patient presents with a 4 hour episode of midsternal chest pain/pressure that has resolved. In the emergency department she is afebrile with vital signs notable for mild hypertension. HEART SCORE History 2 highly suspicious 1 moderately suspicious 0 slightly suspicious History score [address] depression/elevation not due to LBBB, LVH, or digoxin [address] depression but LBBB, LVH, nonspecific repolarization changes 0 normal ECG score 0 Age 2 >/= 65 1 45-64 0 <45 Age score 1 Risk factors (HTN, hypercholesterolemia, DM, obesity with BMI >30, current smoker or cessation </=3mo), positive fam hx with parent or sibling with CVD before age 65, atherosclerotic disease (prior [place], PCI/CABG, CVA/TIA, or peripheral arterial disease) 2 >/= 3 risk factors or history of atherosclerotic dz 1 - 1-2 risk factors 0 no known risk factors Risk factor score 2 Initial Troponin 2 >3 times normal limit 1 1-3 times normal limit 0 less than or equal to normal limit Troponin score 0 Total HEART Score 3 Repeat troponin normal. D dimer mildly elevated. Because no other etiology has been identified to explain symptoms, will proceed with CT PE study. 6 hour troponin, normal. I discussed with patient her low but not negligible risk and the importance of outpatient follow up. Returns to work tomorrow and asked if she needed a work note excusing her to ensure she would be able to rest and/or make phone call regarding next steps/follow up. She decliens. I was notified chest as patient was about to be discharged that the radiologist at [facility] noted gallbladder wall thickening, see below. Patient was informed of this finding. Patient has had no abdominal pain in including no right upper quadrant abdominal pain. Benign abdominal exam. Prabhakar sign negative on exam. No leukocytosis or elevated liver enzymes. Nevertheless I did discuss with on-call general surgeon Dr Gallardo who advises discharge and follow up outpatient in clinic. Differential Diagnosis Differential diagnosis: Likely pneumothorax, stable angina, unstable angina pectoris, atypical chest pain, st elevation myocardial infarction, costochondritis, chest pain, biliary colic and other (Pulmonary embolism, acute viral syndrome; pneumonia) Lab Data Attestation: I reviewed the patient's lab results. Lab results narrative: No leukocytosis. Hemoglobin hematocrit are elevated, likely due to a degree of hemoconcentration although there is no prior for comparison. Very mild hyperglycemia without anion gap acidosis. Normal renal function. 06/27/25 23:56 06/27/25 23:56 Labs: Lab Results 06/27/25 06/28/25 06/28/25 Range/Units 23:56 04:16 05:35 WBC 8.4 (4.5-10.0) K/mm3 RBC 6.02 H (4.2-5.4) M/mm3 Hgb 16.3 H (12.0-15.0) g/dL Hct 50.3 H (37.0-47.0) % MCV 83.6 (80-100) fl MCH 27.1 (26-34) pg MCHC 32.4 (32-36) g/dl RDW 12.9 (11.5-14.5) % Plt Count 222 (150-375) k/mm3 MPV 10.1 (7.4-10.4) fl Immature Gran % (Auto) 0.1 (0-0.5) % Neut % (Auto) 63.4 (45.5-73.1) % Lymph % (Auto) 25.6 (18.3-44.2) % [place] % (Auto) 8.1 (2.6-8.5) % Eos % (Auto) 2.6 (0-4.4) % Baso % (Auto) 0.2 (0.2-1.2) % Lymph # (Auto) 2.15 (0.9-3.2) K/mm3 [place] # (Auto) 0.7 H (0.1-0.6) K/mm3 Eos # (Auto) 0.2 (0-0.3) K/mm3 Baso # (Auto) 0.0 (0.0-0.1) K/mm3 Abs Immat Gran (auto) 0.01 (0.00-0.031) K/mm3 Absolute Neuts (auto) 5.3 (1.3-6.7) K/mm3 Absolute Nucleated RBC 0.000 (0.0-0.012) K/mm3 Nucleated RBC % 0.0 (0.0-0.2) % PT 12.8 (11.1-14.7) Seconds INR 1.0 APTT 28.5 (22.3-36.8) Seconds D-Dimer 0.61 H (<0.48) ug/mL Sodium 137 (137-145) mmol/L Potassium 3.6 (3.4-5.0) mmol/L Chloride 100 (98-107) mmol/L Carbon Dioxide 29 (22-30) mmol/L Anion Gap 8 (4-12) mmol/L BUN 15 (7-17) mg/dL Creatinine 0.65 L (0.7-1.0) mg/dL Estim Creat Clear Calc 85 ml/min Estimated GFR > 60 (59 - ) Glucose 138 H (65-110) mg/dL Calcium 9.5 (8.4-10.2) mg/dL Magnesium 2.1 (1.6-2.3) mg/dL Total Bilirubin 0.5 (0.2-1.3) mg/dL AST 25 (14-36) U/L ALT 19 (6-35) U/L Alkaline Phosphatase 81 (38-126) U/L Troponin I < 0.012 < 0.012 (0.000-0.034) ng/mL Total Protein 7.9 (6.3-8.2) g/dL Albumin 4.3 (3.5-5.1) g/dL Lipase 82 (23-300) U/L Influenza A (RT-PCR) Negative (Negative) Influenza B (RT-PCR) Negative (Negative) RSV (RT-PCR) Negative (Negative) SARS-CoV-2 RNA (RT-PCR) Negative (Negative) 06/28/25 Range/Units 07:16 WBC (4.5-10.0) K/mm3 RBC (4.2-5.4) M/mm3 Hgb (12.0-15.0) g/dL Hct (37.0-47.0) % MCV (80-100) fl MCH (26-34) pg MCHC (32-36) g/dl RDW (11.5-14.5) % Plt Count (150-375) k/mm3 MPV (7.4-10.4) fl Immature Gran % (Auto) (0-0.5) % Neut % (Auto) (45.5-73.1) % Lymph % (Auto) (18.3-44.2) % [place] % (Auto) (2.6-8.5) % Eos % (Auto) (0-4.4) % Baso % (Auto) (0.2-1.2) % Lymph # (Auto) (0.9-3.2) K/mm3 [place] # (Auto) (0.1-0.6) K/mm3 Eos # (Auto) (0-0.3) K/mm3 Baso # (Auto) (0.0-0.1) K/mm3 Abs Immat Gran (auto) (0.00-0.031) K/mm3 Absolute Neuts (auto) (1.3-6.7) K/mm3 Absolute Nucleated RBC (0.0-0.012) K/mm3 Nucleated RBC % (0.0-0.2) % PT (11.1-14.7) Seconds INR APTT (22.3-36.8) Seconds D-Dimer (<0.48) ug/mL Sodium (137-145) mmol/L Potassium (3.4-5.0) mmol/L Chloride (98-107) mmol/L Carbon Dioxide (22-30) mmol/L Anion Gap (4-12) mmol/L BUN (7-17) mg/dL Creatinine (0.7-1.0) mg/dL Estim Creat Clear Calc ml/min Estimated GFR (59 - ) Glucose (65-110) mg/dL Calcium (8.4-10.2) mg/dL Magnesium (1.6-2.3) mg/dL Total Bilirubin (0.2-1.3) mg/dL AST (14-36) U/L ALT (6-35) U/L Alkaline Phosphatase (38-126) U/L Troponin I < 0.012 (0.000-0.034) ng/mL Total Protein (6.3-8.2) g/dL Albumin (3.5-5.1) g/dL Lipase (23-300) U/L Influenza A (RT-PCR) (Negative) Influenza B (RT-PCR) (Negative) RSV (RT-PCR) (Negative) SARS-CoV-2 RNA (RT-PCR) (Negative) Imaging Data Attestation: I personally reviewed and interpreted this imaging study as follows: My impression: Mild haziness at the periphery on my independent interpretation particularly at the bases though I suspect this is due to body habitus and breast tissue as there is no evidence of a pleural effusion, no loss of costophrenic angle. Radiologist's impression: CTA chest stat rad: No acute finding. No PE. Impressions Chest CTA 06/28/25 08:53 IMPRESSION: 1. No pulmonary embolus. 2. Gallbladder wall thickening suspicious for acute or chronic cholecystitis. ADDENDUM: 06/28/25900 I discussed this case with Dr. Wong. Chest X-Ray 06/28/25 09:04 IMPRESSION: 1. No acute cardiopulmonary findings. ECG Data EKG #1: Attestation: I personally reviewed and interpreted this ECG as follows: ECG completion date: 06/27/25 ECG completion time: 23:49 Prior ECG tracings: available for review (08/25/2016 with sinus tachycardia) Interpretation: Normal sinus rhythm at a rate of 69 beats per minute. CO interval 176. QRS 80. QT/QTC 404/423. T-wave inversion in 3 and flattened in AVF upright in contiguous inferior lead 2. No other T-wave inversions. Unclear why EKG does not initially scanned into the EMR. Paper copy in chart. EKG #2: Attestation: I personally reviewed and interpreted this ECG as follows: ECG completion date: 06/28/25 ECG completion time: 04:06 Interpretation: Normal sinus rhythm at a rate of 66 beats per minute. CO interval 181. QRS 80. QT/QTC 384/404. T-wave inversion in 3 but upright in 2 and pre verses flat in AVF. No other T-wave inversions. Discharge Plan Discharge Clinical Impression: Chest pain, Thickening of wall of gallbladder Patient Disposition: Home Condition: Stable Instructions: Antibiotic Form, Chest Pain (ED) Additional Instructions: Follow-up with your primary care physician. They can either help you range the next phase of workup for the name of a radio message router is listed below. Continue taking all of your other medications as prescribed. Return to the emergency department any new or worsening symptoms. For the gallbladder wall thickening, the general surgeon recommended that you follow-up outpatient in clinic. You can call the office to schedule this appointment. Patient Language: Armenian Prescriptions: No Action venlafaxine 75 mg tablet 75 mg PO DAILY levothyroxine [Synthroid] 100 mcg tablet 100 mcg PO DAILY calcium carbonate-vitamin D3 [Caltrate with Vitamin D3] 600 mg-20 mcg (800 unit) Tablet 1 tablet PO DAILY albuterol sulfate 90 mcg/actuation HFA aerosol inhaler 2 puff INHALATION QID PRN (Reason: shortness of breath or wheezing) Qty: 8.5 0RF Ozempic 0.25 mg or 0.5 mg (2 mg/3 mL) pen injector 2 mg SUBCUT WEEKLY benzonatate 200 mg capsule 200 mg PO TID PRN (Reason: cough) Qty: 20 0RF methylprednisolone [Medrol ([place])] 4 mg tablets,dose pack See Rx Instructions PO .COMPLEX Qty: 21 0RF Rx Instructions: orally per package directions albuterol sulfate 90 mcg/actuation HFA aerosol inhaler 2 puff inhalation Q4-6H PRN (Reason: shortness of breath or wheezing) Qty: 8.5 0RF amoxicillin-pot clavulanate 875-125 mg tablet 1 tablet PO Q12H 7 Days Qty: 14 0RF (DME) Aerochamber Plus Z Stat Spacer See Rx Instructions .Route Qty: 1 0RF Rx Instructions: As directed amoxicillin-pot clavulanate 875-125 mg tablet 1 tablet PO Q12H 7 Days Qty: 14 0RF Follow-up/Referrals: Jama Chowdary MD [Physician, Cardiology] Dilcia,MD Macrina [Primary Care Provider] Leoncio Gallardo MD [Physician, General Surgery] Referral Note: general surgery Stand Alone Forms: Work/School Release IP Time of Disposition: 08:55
[2025-06-28 04:57] LABS: Troponin I < 0.012 ng/mL (0.000-0.034)
[2025-06-28 06:03] LABS: Magnesium 2.1 mg/dL (1.6-2.3)
[2025-06-28 06:29] LABS: Influenza A QL RT-PCR Negative (Negative); Influenza B QL RT-PCR Negative (Negative); RSV RNA, RT-PCR Negative (Negative); SARS-CoV-2 RNA PCR Negative (Negative)
--- NOTE | 2025-06-28 07:15 | ECG_ITS ---
Test Date: 2025-06-27 23:49:21 Measurements Intervals Homer Rate: 69 P: 17 NM: 176 QRS: -19 QRSD: 80 T: 4 QT: 404 QTc: 435 Interpretive Statements SINUS RHYTHM VOLTAGE CRITERIA FOR LVH POSSIBLE ANTERIOR MYOCARDIAL INFARCTION , PROBABLY OLD BORDERLINE T WAVE ABNORMALITY- INFERIOR LEADS BASELINE ARTIFACT- I, II, III, AVR, AVL, AVF, V1, V4-V6 ABNORMAL ECG No previous ECG available for comparison Electronically Signed On 06-28-2025 08:19:28 CDT by Errol Barahona D.O.
[2025-06-28 07:16] VITALS: PULSE 64
[2025-06-28 07:22] VITALS: BP 137/81; PULSE 68; RESP 15; O2SAT 99
[2025-06-28 07:43] LABS: Troponin I < 0.012 ng/mL (0.000-0.034)
[2025-06-28 08:25] VITALS: BP 136/72; PULSE 73; RESP 17; O2SAT 96
[2025-06-28 10:06] VITALS: BP 146/75; PULSE 64; RESP 16; TEMP 37; O2SAT 97
== END 2025-06-28 10:07 | disposition home or self-care (01) ==
PROVIDERS: Emergency Provider Student in an Organized Health Care Education/Training Program; PCP Internal Medicine Geriatric Medicine
DX: R07.2 Precordial pain (principal); R93.2 Abnormal findings on diagnostic imaging of liver and biliary tract; Z20.822 Contact with and (suspected) exposure to COVID-19; E11.9 Type 2 diabetes mellitus without complications; E03.9 Hypothyroidism, unspecified; Z85.3 Personal history of malignant neoplasm of breast; Z90.722 Acquired absence of ovaries, bilateral; Z90.13 Acquired absence of bilateral breasts and nipples; Z79.85 Long-term (current) use of injectable non-insulin antidiabetic drugs; Z79.899 Other long term (current) drug therapy; R94.31 Abnormal electrocardiogram [ECG] [EKG]
CPT/HCPCS: 36415; 71046; 71275; 80053; 83690; 83735; 84484; 85025; 85380; 85610; 85730; 87637; 93005; 99284; Q9967